=== PATIENT | male | born 1950 | race African-American/Black ===

== ENCOUNTER → 2016-07-23 | Emergency (ER) | payer MEDICARE, OTHER ==
[~2016-07-23] VITALS: Ht 170.2 cm; Wt 63.5 kg
[2016-07-23 19:03] VITALS: BP 127/72
== END | disposition home or self-care (01) ==
LOC: EMS 16:18
DX: Z76.0 Encounter for issue of repeat prescription (principal); G47.00 Insomnia, unspecified; I10 Essential (primary) hypertension; E11.9 Type 2 diabetes mellitus without complications; F20.9 Schizophrenia, unspecified; F10.10 Alcohol abuse, uncomplicated; F17.210 Nicotine dependence, cigarettes, uncomplicated; Z71.6 Tobacco abuse counseling
CPT/HCPCS: 99283; 99406

== ENCOUNTER 2016-08-15 17:03 | Inpatient (IN) | payer MEDICARE, MEDICAID ==
[~2016-08-15] VITALS: Ht 167.6 cm; Wt 62.6 kg
[2016-08-15 17:59] LABS: ANION GAP 10 mmol/L (8-16); CALCIUM, TOTAL 9.2 mg/dL (8.8-10.5); CARBON DIOXIDE 27 mmol/L (22-29); CHLORIDE 102 mmol/L (98-107); CREATININE 0.95 mg/dL (0.60-1.30); GLOMERULAR FILTR. RATE CALC > 60 mL/min (>60); POTASSIUM 3.6 mmol/L (3.5-5.1); SODIUM SERUM 139 mmol/L (136-145); UREA NITROGEN, BLOOD 11 mg/dL (7-18)
[2016-08-15 18:05] LABS: ALANINE AMINOTRANSFERASE 18 U/L (12-78); ALBUMIN 3.7 g/dL (3.4-5.0); ASPARTATE AMINOTRANSFERASE 39 U/L (15-37); BILIRUBIN,TOTAL 0.7 mg/dL (0.1-1.0); TOTAL PROTEIN, SERUM 7.8 g/dL (6.4-8.2)
[2016-08-15 18:08] LABS: BASOPHILS % (AUTO) 1.1 % (0.0-2.0); EOSINOPHILS % (AUTO) 0.3 % (1.0-6.0); HEMATOCRIT 40.8 % (41-53); HEMOGLOBIN 12.9 g/dL (13.5-17.5); LYMPHOCYTES # (AUTO) 2.6 K/uL (1.0-4.8); LYMPHOCYTES % (AUTO) 55.1 % (22.0-44.0); MEAN CORPUSCULAR HEMOGLOBIN 30.6 pg (26.0-34.0); MEAN CORPUSCULAR HGB CONC 31.7 G/dL (31.0-37.0); MEAN CORPUSCULAR VOLUME 97 fL (80-100); MONOCYTES # (AUTO) 0.4 K/uL (0.1-1.0); MONOCYTES % (AUTO) 8.9 % (2.0-9.0); NEUTROPHILS # (AUTO) 1.6 K/uL (1.8-7.7); NEUTROPHILS % (AUTO) 34.6 % (40.0-70.0); PLATELET COUNT (AUTO) 292 K/uL (150-450); RED BLOOD CELL COUNT(AUTO) 4.22 MIL/uL (4.50-5.90); RED CELL DISTRIBUTION WIDTH 13.7 % (11.5-14.5); WHITE BLOOD COUNT (AUTO) 4.7 K/uL (4.5-11.0)
[2016-08-15] MEDS ORDERED: HALOPERIDOL 5 MG TABLET PO ONE (18:30)
[2016-08-15] MEDS ORDERED: LORazepam 1 MG TABLET PO ONE (18:30)
[2016-08-15] MEDS ORDERED: KETOROLAC TROMETHAMINE 30 MG/ML VIAL IM ONE (19:45)
[2016-08-15] MEDS ORDERED: HALOPERIDOL 5 MG TABLET PO PRN (21:15)
[2016-08-15 22:15] LABS: APPEARANCE,URINE CLEAR (CLEAR); GLUCOSE, URINE (UA) NEGATIVE (NEGATIVE); KETONES,URINE NEGATIVE (NEGATIVE); LEUKOCYTE ESTERASE ,URINE NEGATIVE (NEGATIVE); OCCULT BLOOD,URINE SMALL (NEGATIVE); PH,URINE 6.5 (5.0-8.0); PROTEIN,URINE SEE CONFIRM (NEGATIVE)
[2016-08-15 22:19] VITALS: BP 144/71
[2016-08-15 22:21] LABS: ADD UA MICROSCOPIC YES; SULFOSALICYLIC ACID,URINE 4+ (Negative)
[2016-08-15 22:23] LABS: URINALYSIS COMMENT Rare Sperm seen.
[2016-08-15] MEDS ORDERED: PNEUMOCOCCAL VACCINE POLYVALENT 0.5 ML VIAL [PPSV23] IM ONE (22:45)
[2016-08-16 08:02] VITALS: BP 134/81
[2016-08-16] MEDS ORDERED: DEXTROSE 50%-WATER 25 GM/50 ML SYRINGE IVP PRN (15:30)
[2016-08-16 16:30] VITALS: BP 140/73
[2016-08-16 16:53] LABS: GLUCOSE,POINT OF CARE 100 MG/DL (70-110)
[2016-08-16] MEDS: MetFORMIN HCL 500 MG TABLET PO SCH (17:36)
[2016-08-16 17:41] LABS: HEMOGLOBIN A1C 6.5 % (4.5-6.2)
[2016-08-16] MEDS: QUEtiapine FUMARATE 200 MG TABLET PO SCH (20:25)
[2016-08-16] MEDS: TraZODone HCL 50 MG TABLET PO SCH (20:25)
[2016-08-16 20:32] LABS: GLUCOSE,POINT OF CARE 118 MG/DL (70-110)
[2016-08-17 06:36] LABS: GLUCOSE,POINT OF CARE 118 MG/DL (70-110)
[2016-08-17] MEDS: MetFORMIN HCL 500 MG TABLET PO SCH ×2 (06:56→17:01)
[2016-08-17] MEDS: METOPROLOL SUCCINATE 25 MG ER TABLET PO SCH (08:32)
[2016-08-17] MEDS: ASPIRIN 81 MG EC TABLET PO SCH (08:32)
[2016-08-17] MEDS: LORATADINE 10 MG TABLET PO SCH (08:33)
[2016-08-17 08:42] VITALS: BP 152/70
[2016-08-17 17:00] VITALS: BP 139/56
[2016-08-17 17:11] LABS: GLUCOSE COMMENT 1 Received Meds; GLUCOSE,POINT OF CARE 136 MG/DL (70-110)
[2016-08-17] MEDS: QUEtiapine FUMARATE 200 MG TABLET PO SCH (20:56)
[2016-08-17] MEDS: TraZODone HCL 50 MG TABLET PO SCH (20:56)
[2016-08-17 21:07] LABS: GLUCOSE COMMENT 1 Received Meds; GLUCOSE,POINT OF CARE 99 MG/DL (70-110)
[2016-08-17] MEDS: ZOLPIDEM TARTRATE 10 MG TABLET PO PRN (23:41)
[2016-08-18 00:02] VITALS: BP 139/59
[2016-08-18 05:52] LABS: GLUCOSE,POINT OF CARE 93 MG/DL (70-110)
[2016-08-18] MEDS: MetFORMIN HCL 500 MG TABLET PO SCH ×2 (06:20→17:29)
[2016-08-18 07:31] LABS: ALANINE AMINOTRANSFERASE 13 U/L (12-78); ANION GAP 7 mmol/L (8-16); ASPARTATE AMINOTRANSFERASE 30 U/L (15-37); BILIRUBIN,TOTAL 0.6 mg/dL (0.1-1.0); CALCIUM, TOTAL 8.2 mg/dL (8.8-10.5); CARBON DIOXIDE 28 mmol/L (22-29); CHLORIDE 104 mmol/L (98-107); CREATINE KINASE MB 2.3 ng/mL (0-5); CREATINE KINASE, TOTAL 549 U/L (39-308); CREATININE 0.91 mg/dL (0.60-1.30); GLOMERULAR FILTR. RATE CALC > 60 mL/min (>60); POTASSIUM 3.9 mmol/L (3.5-5.1); SODIUM SERUM 139 mmol/L (136-145); TOTAL PROTEIN, SERUM 6.5 g/dL (6.4-8.2); UREA NITROGEN, BLOOD 10 mg/dL (7-18)
[2016-08-18] MEDS: METOPROLOL SUCCINATE 25 MG ER TABLET PO SCH (08:58)
[2016-08-18] MEDS: ASPIRIN 81 MG EC TABLET PO SCH (08:58)
[2016-08-18] MEDS: LORATADINE 10 MG TABLET PO SCH (08:58)
[2016-08-18] MEDS: MAGNESIUM OXIDE 400 MG TABLET PO SCH (17:29)
[2016-08-18] MEDS: TraZODone HCL 100 MG TABLET PO SCH (20:20)
[2016-08-18] MEDS: QUEtiapine FUMARATE 200 MG TABLET PO SCH (20:21)
[2016-08-18] MEDS: INSULIN ASPART 100 UNITS/ML SQ PRN (20:31)
[2016-08-18 21:32] VITALS: BP 137/69
[2016-08-18 21:47] LABS: GLUCOSE,POINT OF CARE 145 MG/DL (70-110)
[2016-08-19 06:03] LABS: GLUCOSE,POINT OF CARE 86 MG/DL (70-110)
[2016-08-19] MEDS: MetFORMIN HCL 500 MG TABLET PO SCH ×2 (07:07→16:51)
[2016-08-19 08:50] VITALS: BP 142/72
[2016-08-19] MEDS: ASPIRIN 81 MG EC TABLET PO SCH (09:24)
[2016-08-19] MEDS: METOPROLOL SUCCINATE 25 MG ER TABLET PO SCH (09:24)
[2016-08-19] MEDS: LORATADINE 10 MG TABLET PO SCH (09:24)
[2016-08-19] MEDS: LORazepam 2 MG TABLET PO PRN (09:25)
[2016-08-19] MEDS: MAGNESIUM OXIDE 400 MG TABLET PO SCH ×2 (09:25→16:51)
[2016-08-19 16:17] VITALS: BP 152/75
[2016-08-19 16:42] LABS: GLUCOSE,POINT OF CARE 94 MG/DL (70-110)
[2016-08-19] MEDS: TraZODone HCL 100 MG TABLET PO SCH (20:15)
[2016-08-19] MEDS: QUEtiapine FUMARATE 200 MG TABLET PO SCH (20:15)
[2016-08-20 05:27] LABS: GLUCOSE,POINT OF CARE 193 MG/DL (70-110)
[2016-08-20] MEDS: INSULIN ASPART 100 UNITS/ML SQ PRN ×2 (07:01→16:59)
[2016-08-20] MEDS: MetFORMIN HCL 500 MG TABLET PO SCH ×2 (07:04→17:54)
[2016-08-20] MEDS: LORATADINE 10 MG TABLET PO SCH (08:12)
[2016-08-20] MEDS: METOPROLOL SUCCINATE 25 MG ER TABLET PO SCH (08:12)
[2016-08-20] MEDS: ASPIRIN 81 MG EC TABLET PO SCH (08:12)
[2016-08-20] MEDS: MAGNESIUM OXIDE 400 MG TABLET PO SCH ×2 (08:12→16:04)
[2016-08-20 08:35] VITALS: BP 154/62
[2016-08-20 09:26] LABS: CREATINE KINASE MB 1.6 ng/mL (0-5); CREATINE KINASE, TOTAL 197 U/L (39-308)
[2016-08-20] MEDS: LORazepam 2 MG TABLET PO PRN ×2 (10:03→16:05)
[2016-08-20] MEDS: LISINOPRIL 5 MG TABLET PO SCH (10:44)
[2016-08-20 16:17] LABS: GLUCOSE COMMENT 1 Received Meds; GLUCOSE,POINT OF CARE 153 MG/DL (70-110)
[2016-08-20 17:00] VITALS: BP 148/63
[2016-08-20] MEDS: TraZODone HCL 100 MG TABLET PO SCH (20:13)
[2016-08-20] MEDS: QUEtiapine FUMARATE 200 MG TABLET PO SCH (20:13)
[2016-08-21 05:42] LABS: GLUCOSE,POINT OF CARE 81 MG/DL (70-110)
[2016-08-21] MEDS: MetFORMIN HCL 500 MG TABLET PO SCH ×2 (07:07→16:59)
[2016-08-21] MEDS: LORATADINE 10 MG TABLET PO SCH (08:12)
[2016-08-21] MEDS: MAGNESIUM OXIDE 400 MG TABLET PO SCH ×2 (08:12→16:59)
[2016-08-21] MEDS: LISINOPRIL 5 MG TABLET PO SCH (08:13)
[2016-08-21] MEDS: METOPROLOL SUCCINATE 25 MG ER TABLET PO SCH (08:13)
[2016-08-21] MEDS: ASPIRIN 81 MG EC TABLET PO SCH (08:13)
[2016-08-21] MEDS: LORazepam 2 MG TABLET PO PRN (11:41)
[2016-08-21 17:20] VITALS: BP 138/63
[2016-08-21] MEDS: QUEtiapine FUMARATE 200 MG TABLET PO SCH (20:01)
[2016-08-21] MEDS: TraZODone HCL 100 MG TABLET PO SCH (20:02)
[2016-08-21 21:22] LABS: GLUCOSE,POINT OF CARE 178 MG/DL (70-110)
[2016-08-22 05:53] LABS: GLUCOSE COMMENT 1 Juice/Food/D50 Given; GLUCOSE,POINT OF CARE 81 MG/DL (70-110)
[2016-08-22] MEDS: MetFORMIN HCL 500 MG TABLET PO SCH ×2 (06:53→16:57)
[2016-08-22 08:16] VITALS: BP 142/56
[2016-08-22] MEDS: LISINOPRIL 5 MG TABLET PO SCH (08:46)
[2016-08-22] MEDS: LORATADINE 10 MG TABLET PO SCH (08:46)
[2016-08-22] MEDS: METOPROLOL SUCCINATE 25 MG ER TABLET PO SCH (08:47)
[2016-08-22] MEDS: MAGNESIUM OXIDE 400 MG TABLET PO SCH ×2 (08:47→16:57)
[2016-08-22] MEDS: ASPIRIN 81 MG EC TABLET PO SCH (08:47)
[2016-08-22 17:12] LABS: GLUCOSE COMMENT 1 Received Meds; GLUCOSE,POINT OF CARE 129 MG/DL (70-110)
[2016-08-22 19:37] VITALS: BP 140/85
[2016-08-22] MEDS: QUEtiapine FUMARATE 200 MG TABLET PO SCH (21:08)
[2016-08-22] MEDS: TraZODone HCL 100 MG TABLET PO SCH (21:08)
[2016-08-23] MEDS: ZOLPIDEM TARTRATE 10 MG TABLET PO PRN (00:01)
[2016-08-23] MEDS: LORazepam 2 MG TABLET PO PRN (01:45)
[2016-08-23 01:55] VITALS: BP 137/84
[2016-08-23 05:58] LABS: GLUCOSE,POINT OF CARE 91 MG/DL (70-110)
[2016-08-23] MEDS: MetFORMIN HCL 500 MG TABLET PO SCH ×2 (06:49→18:36)
[2016-08-23 08:53] VITALS: BP 136/55
[2016-08-23] MEDS: LORATADINE 10 MG TABLET PO SCH (10:03)
[2016-08-23] MEDS: ASPIRIN 81 MG EC TABLET PO SCH (10:03)
[2016-08-23] MEDS: MAGNESIUM OXIDE 400 MG TABLET PO SCH ×2 (10:03→17:02)
[2016-08-23] MEDS: METOPROLOL SUCCINATE 25 MG ER TABLET PO SCH (10:03)
[2016-08-23] MEDS: LISINOPRIL 5 MG TABLET PO SCH (10:03)
[2016-08-23 16:36] VITALS: BP 147/76
[2016-08-23 17:12] LABS: GLUCOSE,POINT OF CARE 97 MG/DL (70-110)
[2016-08-23] MEDS: QUEtiapine FUMARATE 200 MG TABLET PO SCH (20:48)
[2016-08-23] MEDS: TraZODone HCL 100 MG TABLET PO SCH (20:48)
[2016-08-24 01:50] VITALS: BP 116/57
[2016-08-24] MEDS: ZOLPIDEM TARTRATE 10 MG TABLET PO PRN ×2 (01:50→20:42)
[2016-08-24 05:32] LABS: GLUCOSE,POINT OF CARE 121 MG/DL (70-110)
[2016-08-24] MEDS: MetFORMIN HCL 500 MG TABLET PO SCH ×2 (07:26→16:54)
[2016-08-24 08:00] VITALS: BP 136/56
[2016-08-24] MEDS: MAGNESIUM OXIDE 400 MG TABLET PO SCH ×2 (08:20→16:54)
[2016-08-24] MEDS: METOPROLOL SUCCINATE 25 MG ER TABLET PO SCH (08:20)
[2016-08-24] MEDS: ASPIRIN 81 MG EC TABLET PO SCH (08:20)
[2016-08-24] MEDS: LISINOPRIL 5 MG TABLET PO SCH (08:20)
[2016-08-24] MEDS: LORATADINE 10 MG TABLET PO SCH (08:20)
[2016-08-24 16:13] VITALS: BP 147/64
[2016-08-24] MEDS: QUEtiapine FUMARATE 200 MG TABLET PO SCH (20:08)
[2016-08-24] MEDS: TraZODone HCL 100 MG TABLET PO SCH (20:08)
[2016-08-25 05:37] LABS: GLUCOSE COMMENT 1 Received Meds; GLUCOSE,POINT OF CARE 95 MG/DL (70-110)
[2016-08-25] MEDS: MetFORMIN HCL 500 MG TABLET PO SCH ×2 (07:19→16:40)
[2016-08-25] MEDS: MAGNESIUM OXIDE 400 MG TABLET PO SCH ×2 (08:27→16:40)
[2016-08-25] MEDS: LISINOPRIL 5 MG TABLET PO SCH (08:27)
[2016-08-25] MEDS: LORATADINE 10 MG TABLET PO SCH (08:27)
[2016-08-25] MEDS: ASPIRIN 81 MG EC TABLET PO SCH (08:28)
[2016-08-25] MEDS: METOPROLOL SUCCINATE 25 MG ER TABLET PO SCH (08:28)
[2016-08-25 09:08] VITALS: BP 150/63
[2016-08-25 17:00] VITALS: BP 138/98
[2016-08-25] MEDS: QUEtiapine FUMARATE 200 MG TABLET PO SCH (21:23)
[2016-08-25] MEDS: TraZODone HCL 100 MG TABLET PO SCH (21:23)
[2016-08-25] MEDS: ZOLPIDEM TARTRATE 10 MG TABLET PO PRN (21:23)
[2016-08-26 05:32] LABS: GLUCOSE,POINT OF CARE 84 MG/DL (70-110)
[2016-08-26] MEDS: MetFORMIN HCL 500 MG TABLET PO SCH ×2 (06:47→16:49)
[2016-08-26 08:49] VITALS: BP 153/63
[2016-08-26] MEDS: ASPIRIN 81 MG EC TABLET PO SCH (09:06)
[2016-08-26] MEDS: LISINOPRIL 5 MG TABLET PO SCH (09:06)
[2016-08-26] MEDS: LORATADINE 10 MG TABLET PO SCH (09:07)
[2016-08-26] MEDS: MAGNESIUM OXIDE 400 MG TABLET PO SCH ×2 (09:07→16:49)
[2016-08-26] MEDS: METOPROLOL SUCCINATE 25 MG ER TABLET PO SCH (09:07)
[2016-08-26] MEDS ORDERED: ACETAMINOPHEN 325 MG TABLET PO PRN (13:00)
[2016-08-26] MEDS ORDERED: IBUPROFEN 600 MG TABLET PO PRN (13:00)
[2016-08-26 17:09] VITALS: BP 142/67
[2016-08-26] MEDS: QUEtiapine FUMARATE 200 MG TABLET PO SCH (21:28)
[2016-08-26] MEDS: TraZODone HCL 100 MG TABLET PO SCH (21:28)
[2016-08-26] MEDS: ZOLPIDEM TARTRATE 10 MG TABLET PO PRN (21:43)
[2016-08-27 05:37] LABS: GLUCOSE,POINT OF CARE 77 MG/DL (70-110)
[2016-08-27] MEDS: MetFORMIN HCL 500 MG TABLET PO SCH (07:00)
[2016-08-27] MEDS: LISINOPRIL 5 MG TABLET PO SCH (08:54)
[2016-08-27] MEDS: ASPIRIN 81 MG EC TABLET PO SCH (08:54)
[2016-08-27] MEDS: MAGNESIUM OXIDE 400 MG TABLET PO SCH (08:54)
[2016-08-27] MEDS: METOPROLOL SUCCINATE 25 MG ER TABLET PO SCH (08:55)
[2016-08-27] MEDS: LORATADINE 10 MG TABLET PO SCH (08:55)
[2016-08-27 09:43] VITALS: BP 150/70
[2016-08-27] MEDS ORDERED: TRAZ-147 PO (14:13)
[2016-08-27] MEDS ORDERED: QUET200T PO (14:13)
[2016-08-27] MEDS ORDERED: LISI-660 PO (14:14)
[2016-08-27] MEDS ORDERED: ASPI81 PO (14:14)
[2016-08-27] MEDS ORDERED: LORA10TA7 PO (14:14)
[2016-08-27] MEDS ORDERED: METF500T4 PO (14:15)
[2016-08-27] MEDS ORDERED: METO-323 PO (14:15)
[2016-08-27] MEDS ORDERED: MAGOX PO (14:15)
== END 2016-08-27 15:00 | disposition home or self-care (01) | DRG 885 ==
LOC: EMS 17:06 → 3EX 21:31
DX: F25.1 Schizoaffective disorder, depressive type (principal); M62.82 Rhabdomyolysis; R45.851 Suicidal ideations; F19.20 Other psychoactive substance dependence, uncomplicated; E11.9 Type 2 diabetes mellitus without complications; E83.42 Hypomagnesemia; D64.9 Anemia, unspecified; F12.90 Cannabis use, unspecified, uncomplicated; F15.90 Other stimulant use, unspecified, uncomplicated; F14.90 Cocaine use, unspecified, uncomplicated; B19.20 Unspecified viral hepatitis C without hepatic coma; I10 Essential (primary) hypertension; F15.10 Other stimulant abuse, uncomplicated; F17.210 Nicotine dependence, cigarettes, uncomplicated; I25.10 Atherosclerotic heart disease of native coronary artery without angina pectoris; J30.9 Allergic rhinitis, unspecified; Z59.0 Homelessness; Z95.1 Presence of aortocoronary bypass graft; Z91.5 Personal history of self-harm; Z72.89 Other problems related to lifestyle; Z71.51 Drug abuse counseling and surveillance of drug abuser
CPT/HCPCS: 82105; 82962; 83036; 83735; 93005; 96372; 99285; G0480; J1885

== ENCOUNTER 2017-07-21 13:06 | Emergency (ER) | payer MEDICARE, OTHER ==
[~2017-07-21] VITALS: Ht 167.6 cm; Wt 62.7 kg
[~2017-07-21 13:06] MED LIST: ASPI81 PO; LISI-660 PO; LORA10TA7 PO; MAGOX PO; METF500T4 PO; METO25XL PO; QUET200T PO; TRAZ-147 PO
[2017-07-21 13:14] VITALS: BP 165/127
[2017-07-21 13:22] LABS: GLUCOSE,POINT OF CARE 202 MG/DL (70-110)
== END 2017-07-21 14:42 | disposition left against medical advice (07) ==
LOC: EMS 13:07
DX: R44.0 Auditory hallucinations (principal); F20.9 Schizophrenia, unspecified; I25.10 Atherosclerotic heart disease of native coronary artery without angina pectoris; E11.9 Type 2 diabetes mellitus without complications; F12.90 Cannabis use, unspecified, uncomplicated; F19.90 Other psychoactive substance use, unspecified, uncomplicated; F17.210 Nicotine dependence, cigarettes, uncomplicated; Z53.21 Procedure and treatment not carried out due to patient leaving prior to being seen by health care provider
CPT/HCPCS: 82962